=== PATIENT | female | born 1980 | race Asian ===

== ENCOUNTER 2016-06-04 13:36 | Day surgery (SDC) | payer OTHER ==
[2016-06-04] MEDS ORDERED: LIDOCAINE 1% 5 ML SDV ONE (14:21)
[2016-06-04] MEDS ORDERED: LIDOCAINE 1% 30 ML SDV ONE (14:24)
[2016-06-04] MEDS ORDERED: MIDAZOLAM 2 MG/2 ML VIAL ONE (14:24)
[2016-06-04] MEDS ORDERED: LIDOCAINE 2% JELLY 5 ML TUBE ONE (14:25)
[2016-06-04] MEDS ORDERED: ALBUTEROL 3 ML DEYVIAL ONE (14:25)
[2016-06-04] MEDS ORDERED: fentaNYL 100 MCG/2 ML INJ ONE (14:25)
[2016-06-04] MEDS ORDERED: LIDOCAINE HCL 4% TOPICAL SOLN 50ML ONE (14:37)
--- NOTE | 2016-06-04 21:53 | GPN ---
[f rep st] PROCEDURE NOTE DATE OF PROCEDURE: 06/04/2016 PROCEDURE: Bronchoscopy. INDICATION: Mild bronchiectasis with inflammatory pulmonary nodules: Query [id number]-[id number] acellulare versus other infectious etiologies. DESCRIPTION OF PROCEDURE: The patient was performed in the Endoscopy Unit. Informed consent was obt ained from the patient. Appropriate time out was performed and appropriate masks worn. Intravenous sedation was 4 mg of Versed and 100 mcg of fentanyl. Topical anesthesia included a small amount of H urricaine spray and approximately 16 mL of 1% lidocaine. Fiberoptic bronchoscope was passed via a bite block in her larynx. Laryngeal structures were normal. The vocal cords moved normally with respiration and cough. The bronchoscope was then advanced into the trachea and then into the lower tracheobronchial tree bilaterally. There were a [id number] amount of secretions found bilaterally in all lobes. The mucosa generally was quite erythematous, bu t not edematous. There were no endobronchial lesions. No evidence of extrinsic compression. All ar eas were observed to at least the first subsegmental level. Bronchoalveolar lavage and bronchial was h samples were obtained bilaterally from the middle, lower lobes, and lingula. Samples were combined and sent to the Laboratory for cultures and cytologies. The patient tolerated the procedure well. There were no complications. Vital signs and oxygen satur ation remained normal throughout the procedure. IMPRESSION: 1. Significant mucosal erythema. 2. Modest secretions were present. 3. Appropriate samples were sent to the Laboratory for cultures and cytologies. /[id number]/MODL
== END 2016-06-04 16:55 | disposition home or self-care (01) ==
LOC: FPAT 13:36 → FSGY 13:36 → FPAT 16:55
PROVIDERS: ATTEND Internal Medicine Pulmonary Disease
PROC: 0B958ZX Drainage of Right Middle Lobe Bronchus, Via Natural or Artificial Opening Endoscopic, Diagnostic (ICD-10-PCS; principal; 2016-06-04 14:30)
PROC: 0B9B8ZX Drainage of Left Lower Lobe Bronchus, Via Natural or Artificial Opening Endoscopic, Diagnostic (ICD-10-PCS; principal; 2016-06-04 14:30)
PROC: 0BB68ZX Excision of Right Lower Lobe Bronchus, Via Natural or Artificial Opening Endoscopic, Diagnostic (ICD-10-PCS; principal; 2016-06-04 14:30)
PROC: 0BB58ZX Excision of Right Middle Lobe Bronchus, Via Natural or Artificial Opening Endoscopic, Diagnostic (ICD-10-PCS; principal; 2016-06-04 14:30)
PROC: 0BB98ZX Excision of Lingula Bronchus, Via Natural or Artificial Opening Endoscopic, Diagnostic (ICD-10-PCS; principal; 2016-06-04 14:30)
PROC: 0BBB8ZX Excision of Left Lower Lobe Bronchus, Via Natural or Artificial Opening Endoscopic, Diagnostic (ICD-10-PCS; principal; 2016-06-04 14:30)
PROC: 0B998ZX Drainage of Lingula Bronchus, Via Natural or Artificial Opening Endoscopic, Diagnostic (ICD-10-PCS; principal; 2016-06-04 14:30)
PROC: 0B968ZX Drainage of Right Lower Lobe Bronchus, Via Natural or Artificial Opening Endoscopic, Diagnostic (ICD-10-PCS; principal; 2016-06-04 14:30)
DX: R91.8 Other nonspecific abnormal finding of lung field (principal)
CPT/HCPCS: 87188-90; 87556-90; J0171; J2250; J3010

== ENCOUNTER 2017-05-22 21:21 | Emergency (ER) | payer OTHER ==
[2017-05-22 21:39] VITALS: BP 117/84; PULSE 78; RESP 16; TEMP 97.9; O2SAT 98
--- NOTE | 2017-05-22 22:16 | EDPHY ---
H & P Time Seen by Provider: 05/22/17 22:06 HPI/ROS: CHIEF COMPLAINT: Right forearm abrasion HISTORY OF PRESENT ILLNESS: Scratched by a friend's dog in [place] this morning. She flew back here as she was there for [place]. Friend's dog is apparently immunized. REVIEW OF SYSTEMS: No other injuries PAST MEDICAL HISTORY: Back surgery and lung biopsy General Appearance: Alert and conversant, cooperative. Patient has a 2 mm abrasion on the radial volar surface of her mid right forearm. No surrounding redness. Not swollen. Not tender to the touch. No lymphangitis. No open wounds and no active bleeding. Emergency Department course/MDM: Patient has a small abrasion from getting scratched by dog. She does not have evidence that this is a high risk wound for infection or transmission of Infectious Disease. Does not require any special care other than local wound treatment. Discharged with verbal aftercare instructions. Smoking Status: Never smoked Constitutional: Initial Vital Signs Temperature (C) 36.6 C 05/22/17 21:35 Heart Rate 78 05/22/17 21:35 Respiratory Rate 16 05/22/17 21:35 Blood Pressure 117/84 H 05/22/17 21:35 O2 Sat (%) 98 05/22/17 21:35 O2 Delivery Mode Room Air Allergies/Adverse Reactions: penicillin G Allergy (Verified 05/22/17 21:40) Unknown lobster Allergy (Uncoded 05/22/17 21:40) mackerel Allergy (Uncoded 05/22/17 21:40) Home Medications: Medication Instructions Recorded NK [No Known Home Meds] 10/15/15 MDM/Departure - Depart Disposition: Home, Routine, Self-Care Clinical Impression: Abrasion of right forearm, initial encounter Condition: Good Instructions: Abrasion (ED) Referrals: BRAD HELLER [Other] - As per Instructions
== END 2017-05-22 22:23 | disposition home or self-care (01) ==
DX: S50.811A Abrasion of right forearm, initial encounter (principal); W54.8XXA Other contact with dog, initial encounter